=== PATIENT | male | born 1975 | race Caucasian/White ===

== ENCOUNTER 2019-06-05 19:42 | Emergency (ER) | payer OTHER ==
[~2019-06-05] VITALS: Ht 172.7 cm; Wt 88.5 kg
[2019-06-05] MEDS ORDERED: AVAPRO150 MG PO (20:08)
[2019-06-05] MEDS ORDERED: JANUMET XR 50-1 EAC1 PO (20:09)
== END 2019-06-05 22:59 | disposition home or self-care (01) ==
LOC: ER 19:42
DX: E11.65 Type 2 diabetes mellitus with hyperglycemia (principal); F06.4 Anxiety disorder due to known physiological condition